=== PATIENT | female | born 1980 | race Two or more races ===

== ENCOUNTER 2020-04-10 04:26 | Inpatient (IN) ==
[2020-04-10] MEDS ORDERED: D5 1/2 NS 1000 ML 1,000 ML IV ONE (04:49)
[2020-04-10] MEDS: D5 1/2 NS 1000 ML 1,000 ML IV SCH ×4 (05:00→15:31)
[2020-04-10 05:18] LABS: BASOPHILS % (AUTO) 0.6 % (0.2-1.0); EOSINOPHILS # (AUTO) 0.1 x10^3/uL (0.0-0.2); EOSINOPHILS % (AUTO) 1.4 % (0.9-2.9); HEMATOCRIT 29.9 % (36.0-47.0); HEMOGLOBIN 9.5 g/dL (12.0-16.0); LYMPHOCYTES # (AUTO) 1.5 X10^3/uL (1.3-2.9); LYMPHOCYTES % (AUTO) 19.4 % (21.0-51.0); MEAN CORPUSCULAR HEMOGLOBIN 24.3 pg (27.0-34.0); MEAN CORPUSCULAR HGB CONC 31.9 g/dL (33.0-35.0); MEAN CORPUSCULAR VOLUME 76.3 fL (80.0-100.0); MEAN PLATELET VOLUME 9.5 fL (7.4-11.0); MONOCYTES # (AUTO) 0.6 x10^3/uL (0.3-0.8); MONOCYTES % (AUTO) 7.9 % (0.0-13.0); NEUTROPHILS # (AUTO) 5.4 x10^3/uL (2.2-4.8); NEUTROPHILS % (AUTO) 70.7 % (42.0-75.0); PLATELET COUNT 239 X10^3/uL (150.0-450.0); RED BLOOD COUNT 3.92 X10^6/uL (3.5-5.4); RED CELL DISTRIBUTION WIDTH 17.2 % (11.6-16.5); WHITE BLOOD COUNT 7.6 X10^3/uL (3.6-10.0)
[2020-04-10 05:19] LABS: BILIRUBIN,URINE NEGATIVE (NEGATIVE); BLOOD/HEMOGLOBIN,URINE 4+ (NEGATIVE); GLUCOSE, URINE NEGATIVE (NEGATIVE); KETONES,URINE NEGATIVE (NEGATIVE); LEUKOCYTE ESTERASE ,URINE NEGATIVE (NEGATIVE); NITRITES,URINE NEGATIVE (NEGATIVE); PROTEIN,URINE 3+ (NEGATIVE); UROBILINOGEN,URINE NORMAL (NORMAL)
[2020-04-10 05:22] LABS: APPEARANCE,URINE SLIGHTLY HAZY (CLEAR); COLOR,URINE YELLOW (YELLOW)
[2020-04-10 05:26] LABS: ALANINE AMINOTRANSFERASE 15 Units/L (12-78); ALBUMIN 2.3 g/dL (3.4-5.0); ALKALINE PHOSPHATASE 390 Units/L (46-116); ASPARTATE AMINO TRANSFERASE 19 Units/L (15-37); BLOOD UREA NITROGEN 15 mg/dL (7-18); CALCIUM 8.4 mg/dL (8.5-10.1); CARBON DIOXIDE 23.7 mmol/L (21-32); CHLORIDE 104 mmol/L (98-107); COR CA(FOR HYPOALB) 9.8 mg/dL (8.5-10.1); CREATININE 0.85 mg/dL (0.55-1.02); SODIUM 137 mmol/L (136-145); TOTAL PROTEIN 5.8 g/dL (6.4-8.2); eGFR NON BLACK RACES > 60 (>60)
[2020-04-10 05:27] LABS: AMNISURE ROM TEST THERE IS A RUPTURE (NO RUPTURE)
[2020-04-10 05:28] LABS: BACTERIA,URINE TRACE /HPF (NEGATIVE); SQUAMOUS EPITHELIAL CELL,UR NUMEROUS /HPF (NEGATIVE)
[2020-04-10] MEDS ORDERED: PITOCIN ONE (05:43)
[2020-04-10] MEDS ORDERED: BETADINE SOLN ONE (05:43)
[2020-04-10 05:45] LABS: ANISOCYTOSIS SLIGHT; HYPOCHROMASIA SLIGHT; MICROCYTOSIS SLIGHT; PLATELET MORPHOLOGY COMMENT NORMAL (NORMAL)
[2020-04-10] MEDS ORDERED: AMPICILLIN VIAL 2 GRAM 2 G in NS 100 ML IV + SPIKE MINIBAG* 100 ML IV SCH (05:45)
[2020-04-10] MEDS ORDERED: AMPICILLIN VIAL 2 GRAM ONE (05:47)
[2020-04-10] MEDS ORDERED: NS 100 ML IV 100 ML IV ONE ×2 (05:48→09:31)
[2020-04-10] MEDS: STADOL INJ ONE ×2 (06:05→07:29)
[2020-04-10] MEDS ORDERED: PITOCIN IVP ONE (06:06)
[2020-04-10] MEDS ORDERED: PHENERGAN INJ 25 MG IM PRN ×2 (06:06→10:52)
[2020-04-10] MEDS ORDERED: REGLAN INJ 10 MG VIAL IVP PRN (06:06)
[2020-04-10] MEDS ORDERED: D5LR 1L W PITOCIN 10 UNITS/L 10 UNITS/1,000 ML BAG IV PRN (06:06)
[2020-04-10] MEDS ORDERED: STADOL INJ IVP PRN (06:12)
--- NOTE | 2020-04-10 07:00 | DR.OB ---
OB Quick Note - Assessment/Plan Assessment/Plan: L&D 04/10/20 at 6:50am S-No complaint. O-Afebrile,VSS SRR=907 with good LTV, +accel, no decel. CTX=q 1 1/2 to 2 min., moderate by palpation CVX=5cm/90%/0/VTX Clear fluid. IUPC and FSE placed. A-IUP at 38 4/7 weeks with SROM and active labor IDDM AMA +GBS abn. quad screen Depression P-Pitocin augmentation as needed IV ABX in labor Anticipate
[2020-04-10] MEDS: AMPICILLIN VIAL 1 GRAM 1 G in NS 50 ML IV + SPIKE MINIBAG* 50 ML IV SCH ×3 (09:30→16:19)
[2020-04-10] MEDS: AMPICILLIN VIAL 1 GRAM ONE ×2 (09:30→12:02)
[2020-04-10] MEDS ORDERED: REGLAN INJ 10 MG VIAL ONE (09:52)
[2020-04-10] MEDS: D5LR 1L W PITOCIN 10 UNITS/L 10 UNITS/1,000 ML BAG IV ONE ×2 (10:22→12:05)
[2020-04-10] MEDS ORDERED: XYLOCAINE 1 % (PLAIN) ONE (10:31)
[2020-04-10] MEDS ORDERED: ADACEL or BOOSTRIX TDaP VACCINE IM ONE ×2 (10:55→13:22)
[2020-04-10] MEDS ORDERED: MILK OF MAGNESIA PO PRN (10:55)
[2020-04-10] MEDS ORDERED: AMBIEN PO PRN (10:55)
[2020-04-10] MEDS ORDERED: DERMOPLAST PAIN RELIEF SPRAY TOP PRN (10:55)
[2020-04-10] MEDS ORDERED: HumuLIN R SUBCUT PRN (10:56)
[2020-04-10] MEDS: D5 1/2 NS 1L W PITOCIN 20 UNITS/L 20 UNITS/1,000 ML BAG IV ONE ×2 (11:45→12:06)
[2020-04-10] MEDS: D5 1/2 NS 1000 ML 1,000 ML with PITOCIN 20 UNITS IV SCH ×4 (11:45→19:54)
[2020-04-10] MEDS ORDERED: AMPICILLIN VIAL 500 MG ONE (13:21)
[2020-04-10] MEDS ORDERED: NS 50 ML IV + SPIKE MINIBAG* 50 ML IV ONE (13:24)
[2020-04-10] MEDS ORDERED: DERMOPLAST PAIN RELIEF SPRAY ONE (14:04)
[2020-04-10] MEDS: MOTRIN TAB 800 MG PO PRN ×2 (14:06→22:28)
--- NOTE | 2020-04-10 17:08 | DR.OB ---
OB Quick Note - Assessment/Plan Assessment/Plan: Delivery Note [employer]ORD[employer] 04/10/20 at 10:16am Patient complete and pushing. Head delivered over intact perineum. Nose and mouth bulb suctioned. No nuchal cord. Difficulty delivering shoulders. Mary manuever used with suprapubic pressure. Right axilla pulled to deliver right arm and body followed. Cord clamped x 2 and cut. Infant handed to attendant. Cord sent for gases. Placenta delivered spontaneously / intact / 3 vessel cord. No CVX tears. A small second degree midline tear noted and repaired with 0-vicryl in usual fashion. Viable female infant, VTX/OA, wt=9'7" and 3/8, stable to NBN. Mother stable to RR. IIY=[id number].
[2020-04-10] MEDS ORDERED: SNACK - Diabetic Appropriate PO SCH (20:00)
[2020-04-10] MEDS ORDERED: MYLICON TAB 80 MG CHEW PO PRN (22:33)
[2020-04-11 04:42] LABS: HEMATOCRIT 26.2 % (36.0-47.0); HEMOGLOBIN 8.4 g/dL (12.0-16.0)
[2020-04-11] MEDS: D5 1/2 NS 1000 ML 1,000 ML IV SCH ×5 (05:39→13:21)
[2020-04-11] MEDS: D5 1/2 NS 1000 ML 1,000 ML with PITOCIN 20 UNITS IV SCH ×4 (05:39→12:14)
[2020-04-11] MEDS ORDERED: PRENATAL PLUS PO SCH (09:00)
[2020-04-11 12:14] VITALS: BP 133/59
== END 2020-04-11 13:15 | disposition home or self-care (01) | DRG 807 ==
LOC: ER 04:28 → LD 05:34 → MED/SURG 12:58
PROVIDERS: ADMIT Specialist; ATTEND Specialist
DX: Z3A.38 38 weeks gestation of pregnancy; D50.8 Other iron deficiency anemias; Z23 Encounter for immunization; B95.1 Streptococcus, group B, as the cause of diseases classified elsewhere; O99.824 Streptococcus B carrier state complicating childbirth; O99.013 Anemia complicating pregnancy, third trimester; O24.424 Gestational diabetes mellitus in childbirth, insulin controlled; O28.5 Abnormal chromosomal and genetic finding on antenatal screening of mother; Z37.0 Single live birth; O99.343 Other mental disorders complicating pregnancy, third trimester